=== PATIENT | female | born 1990 | race Caucasian/White ===

== ENCOUNTER 2019-03-19 19:49 | Emergency (ER) | payer OTHER ==
[~2019-03-19] VITALS: Ht 165.1 cm; Wt 74.4 kg
[~2019-03-19 19:49] MED LIST: Albuterol inhaler; Ambien; B/P med; Celexa; LEVO500T69 PO; ONDAN4ODT PO; PREN-52
--- OUTSIDE RECORDS SUMMARY | 2019-03-19 19:54 | XMS REPORT | Continuity of Care Document ---
Demographics x Preferred Language Unknown Marital Status Unknown Moravian Affiliation Unknown Race Unknown Ethnic Group Unknown Author Organization Unknown Address Unknown Phone Unavailable Allergies There is no data. Medications There is no data. Problems There is no data. Procedures There is no data. Results There is no data. Encounters ACCT No. Visit Date/Time Discharge Status Pt. Type Provider Facility Loc./Unit Complaint [id number] 12/21/2018 10:45:00 12/21/2018 23:59:59 CLS Outpatient [facility]
--- NOTE | 2019-03-19 20:35 | NUR ---
Pt brought to ED 2 for triage when room available. Pt is in custody of [facility] officer. Pt reports chest pain on and off x 3 days. Pt has had a cough x 2 days. See triage hx.
--- NOTE | 2019-03-19 21:04 | ED Chest Pain ---
General Chief Complaint: Chest Pain Stated Complaint: CHEST PAIN, HEAD ACHE, HIGH BP Source: patient, RN notes reviewed Exam Limitations: no limitations History of Present Illness Date Seen by Provider: Mar 19, 2019 Time Seen by Provider: 21:04 Allergies and Home Medications Allergies Coded Allergies: Penicillins (Unverified Allergy, Mild, 05/21/09) Promethazine (Unverified Allergy, Mild, 05/21/09) Past Bswllzq-Zvezhz-Moexxg Hx Patient Social History Recent Foreign Travel: No Contact w/Someone Who Travel: No Physical Exam Vital Signs Vital Signs - First Documented Capillary Refill : Height, Weight, BMI Height: 5'4" Weight: 135lbs. oz. 61.180465fw; BMI Method:Stated Progress/Results/Core Measures Results/Orders Lab Results Laboratory Tests Test 03/19/19 21:10 03/19/19 21:15 Range/Units White Blood Count 8.2 4.3-11.0 10^3/uL Red Blood Count 4.54 4.35-5.85 10^6/uL Hemoglobin 13.8 11.5-16.0 G/DL Hematocrit 41 35-52 % Mean Corpuscular Volume 90 80-99 FL Mean Corpuscular Hemoglobin 30 25-34 PG Mean Corpuscular Hemoglobin Concent 34 32-36 G/DL Red Cell Distribution Width 12.9 10.0-14.5 % Platelet Count 428 H 130-400 10^3/uL Mean Platelet Volume 9.0 7.4-10.4 FL Neutrophils (%) (Auto) 52 42-75 % Lymphocytes (%) (Auto) 38 12-44 % Monocytes (%) (Auto) 7 0-12 % Eosinophils (%) (Auto) 2 0-10 % Basophils (%) (Auto) 0 0-10 % Neutrophils # (Auto) 4.3 1.8-7.8 X 10^3 Lymphocytes # (Auto) 3.1 1.0-4.0 X 10^3 Monocytes # (Auto) 0.6 0.0-1.0 X 10^3 Eosinophils # (Auto) 0.2 0.0-0.3 10^3/uL Basophils # (Auto) 0.0 0.0-0.1 10^3/uL D-Dimer 0.24 0.00-0.49 UG/ML Sodium Level 140 135-145 MMOL/L Potassium Level 4.3 3.6-5.0 MMOL/L Chloride Level 101 98-107 MMOL/L Carbon Dioxide Level 24 21-32 MMOL/L Anion Gap 15 H 5-14 MMOL/L Blood Urea Nitrogen 13 7-18 MG/DL Creatinine 0.64 0.60-1.30 MG/DL Estimat Glomerular Filtration Rate > 60 BUN/Creatinine Ratio 20 Glucose Level 140 H 70-105 MG/DL Calcium Level 9.9 8.5-10.1 MG/DL Corrected Calcium 8.5-10.1 MG/DL Magnesium Level 2.1 1.8-2.4 MG/DL Total Bilirubin 0.2 0.1-1.0 MG/DL Aspartate Amino Transf (AST/SGOT) 16 5-34 U/L Alanine Aminotransferase (ALT/SGPT) 22 0-55 U/L Alkaline Phosphatase 83 40-136 U/L Troponin I < 0.30 <0.30 NG/ML Pro-B-Type Natriuretic Peptide < 5.0 <75.0 PG/ML Total Protein 8.0 6.4-8.2 GM/DL Albumin 4.8 H 3.2-4.5 GM/DL Lipase 21 8-78 U/L Urine Color YELLOW Urine Clarity CLEAR Urine pH 8.0 5-9 Urine Specific Randolph 1.010 L 1.016-1.022 Urine Protein NEGATIVE NEGATIVE Urine Glucose (UA) NEGATIVE NEGATIVE Urine Ketones NEGATIVE NEGATIVE Urine Nitrite NEGATIVE NEGATIVE Urine Bilirubin NEGATIVE NEGATIVE Urine Urobilinogen 0.2 NORMAL MG/DL Urine Leukocyte Esterase TRACE NEGATIVE Urine RBC (Auto) NEGATIVE NEGATIVE Urine RBC NONE /HPF Urine WBC 2-5 /HPF Urine Squamous Epithelial Cells >50 H /HPF Urine Crystals NONE /LPF Urine Bacteria FEW H /HPF Urine Casts NONE /LPF Urine Mucus NEGATIVE /LPF Urine Culture Indicated NO Urine Test NEGATIVE NEGATIVE My Orders Orders - SHANNON DALTON DO Ed Iv/Invasive Line Start (03/19/19 21:04) Ekg Tracing (03/19/19 21:04) Cbc With Automated Diff (03/19/19 21:04) Comprehensive Metabolic Panel (03/19/19 21:04) Fibrin Degradation Products (03/19/19 21:04) Drug Screen Stat (Urine) (03/19/19 21:04) Lipase (03/19/19 21:04) Magnesium (03/19/19 21:04) Troponin I (03/19/19 21:04) Ua Culture If Indicated (03/19/19 21:04) Probnp Fs (03/19/19 21:04) Chest Pa/Lat (2 View) (03/19/19 21:04) Hcg,Qualitative Urine (03/19/19 21:42) Dexamethasone Injection (Decadron Inject (03/19/19 22:15) Vital Signs/I&O 03/19/19 03/19/19 20:35 20:35 Temp 99.1 Pulse 93 Resp 18 B/P (MAP) 130/89 (103) Pulse Ox 96 O2 Delivery Room Air Room Air Departure Impression Primary Impression: Costochondritis, acute Disposition: 21 DIS/XFER COURT/LAW [employer]ORCE Condition: Stable Departure-Patient Inst. Decision time for Depature: 22:15 Referrals: JESSICA OTERO MD (PCP/Family) Primary Care Physician Patient Instructions: Chest Pain That Is Not Caused by the Heart (DC), Costochondritis (DC) Add. Discharge Instructions: RECOMMEND 600 mg OF IBUPROFEN EVERY 6 HOURS NEEDED FOR PAIN. All discharge instructions reviewed with patient and/or family. Voiced understanding. SHANNON DALTON DO Mar 19, 2019 21:04
[2019-03-19 21:24] LABS: WHITE BLOOD COUNT 8.2 10^3/uL (4.3-11.0)
[2019-03-19 21:25] LABS: BASOPHILS % (AUTO) 0 % (0-10); EOSINOPHILS # (AUTO) 0.2 10^3/uL (0.0-0.3); EOSINOPHILS % (AUTO) 2 % (0-10); HEMATOCRIT 41 % (35-52); HEMOGLOBIN 13.8 G/DL (11.5-16.0); LYMPHOCYTES # (AUTO) 3.1 X 10^3 (1.0-4.0); LYMPHOCYTES % (AUTO) 38 % (12-44); MEAN CORPUSCULAR HEMOGLOBIN 30 PG (25-34); MEAN CORPUSCULAR HGB CONC 34 G/DL (32-36); MEAN CORPUSCULAR VOLUME 90 FL (80-99); MONOCYTES # (AUTO) 0.6 X 10^3 (0.0-1.0); MONOCYTES % (AUTO) 7 % (0-12); NEUTROPHILS # (AUTO) 4.3 X 10^3 (1.8-7.8); NEUTROPHILS % (AUTO) 52 % (42-75); PLATELET COUNT 428 10^3/uL (130-400); RED CELL DISTRIBUTION WIDTH 12.9 % (10.0-14.5)
--- NOTE | 2019-03-19 21:28 | Diagnostic Imaging Report ---
EXAMINATION: CHEST (PA AND LATERAL) CLINICAL INDICATION: 28-year-old female, chest pain. COMPARISON: None. FINDINGS: Heart size and mediastinal contours are unremarkable. There is no identified pneumothorax. There is no pleural effusion. There is no identified focal airspace consolidation. IMPRESSION: No identified acute cardiopulmonary abnormality. Dictated by: Dictated on workstation # [id number]
[2019-03-19 21:29] LABS: BILIRUBIN,URINE NEGATIVE (NEGATIVE); CLARITY,URINE CLEAR; COLOR,URINE YELLOW; GLUCOSE, URINE (UA) NEGATIVE (NEGATIVE); KETONES,URINE NEGATIVE (NEGATIVE); NITRITE,URINE NEGATIVE (NEGATIVE); PROTEIN,URINE NEGATIVE (NEGATIVE)
[2019-03-19 21:30] LABS: BACTERIA,URINE FEW /HPF; LEUKOCYTE ESTERASE ,URINE TRACE (NEGATIVE); SQUAMOUS EPITHELIAL CELL,UR >50 /HPF; UROBILINOGEN,URINE 0.2 MG/DL (NORMAL)
[2019-03-19] MEDS ORDERED: AMIT25TA9 (21:49)
[2019-03-19] MEDS ORDERED: METO-333 (21:49)
[2019-03-19] MEDS ORDERED: QUET300T44 (21:49)
[2019-03-19 21:58] LABS: ALANINE AMINOTRANSFERASE 22 U/L (0-55); ALKALINE PHOSPHATASE 83 U/L (40-136); BILIRUBIN,TOTAL 0.2 MG/DL (0.1-1.0); BUN/CREATININE RATIO 20; CALCIUM 9.9 MG/DL (8.5-10.1); CARBON DIOXIDE 24 MMOL/L (21-32); CHLORIDE 101 MMOL/L (98-107); CREATININE SERUM 0.64 MG/DL (0.60-1.30); GFR ESTIMATED > 60; GLUCOSE 140 MG/DL (70-105); MAGNESIUM 2.1 MG/DL (1.8-2.4); POTASSIUM 4.3 MMOL/L (3.6-5.0); SODIUM 140 MMOL/L (135-145)
[2019-03-19 21:59] LABS: ALBUMIN 4.8 GM/DL (3.2-4.5); LIPASE 21 U/L (8-78)
[2019-03-19] MEDS ORDERED: DEXAMETHASONE 10 MG/ML (DECADRON) 1 ML VIAL IV ONE (22:15)
[2019-03-19 22:29] VITALS: BP 129/82
--- NOTE | 2019-03-19 22:29 | NUR ---
[facility]
[2019-03-20 01:12] LABS: AMPHETAMINE SCREEN, URINE NEGATIVE (NEGATIVE); BARBITURATE SCREEN URINE NEGATIVE (NEGATIVE); BENZODIAZEPINES SCREEN URINE NEGATIVE (NEGATIVE); CANNABINOID SCREEN, URINE NEGATIVE (NEGATIVE); COCAINE SCREEN URINE NEGATIVE (NEGATIVE); METHADONE STAT NEGATIVE (NEGATIVE); METHAMPHETAMINE SCREEN URINE S NEGATIVE (NEGATIVE); OPIATE SCREEN URINE NEGATIVE (NEGATIVE); OXYCODONE STAT NEGATIVE (NEGATIVE); PROPOXYPHENE STAT NEGATIVE (NEGATIVE); TRICYCLIC ANTIDEPRESSANTS SCRE POSITIVE (NEGATIVE)
== END 2019-03-19 22:29 ==
LOC: EDUNIT# 19:49 → ER FS 19:50
DX: M94.0 Chondrocostal junction syndrome [Tietze] (principal); Z88.0 Allergy status to penicillin; Z88.8 Allergy status to other drugs, medicaments and biological substances
CPT/HCPCS: 36415; 71046; 80053; 80306; 81000; 83690; 83735; 83880; 84484; 84703; 85025; 85379; 93005

== ENCOUNTER 2019-11-29 20:46 | Emergency (ER) | payer SELFPAY ==
[~2019-11-29] VITALS: Ht 165.1 cm; Wt 63.8 kg
[~2019-11-29 20:46] MED LIST changes: +AMIT25TA9; +METO-333; +QUET300T44
--- OUTSIDE RECORDS SUMMARY | 2019-11-29 20:52 | XMS REPORT ---
Author Author Adilene Russo [facility] Address [address] [place] [phone] Care Team Providers Care Freelance Graphic Designer Name Role Phone Samantha Russo Unavailable PROBLEMS Type Condition ICD9-CM Code [id number] Code Onset Dates Condition S tatus SNOMED Code Problem [place] (generalized anxiety disorder) F41.1 Active 29838348 Problem Essential (primary) hypertension I10 Active 02668511 Problem Methamphetamine abuse F15.10 Active 252928358 Problem Migraine with aura and without status migrainosu s, not intractable G43.109 Active 8747488 Problem Cigarette nicotine dependence without complication F17.210 Active 07628461 ALLERGIES Substance Reaction Event Type Date Status Penicillin G Sodium Unknown Drug Allergy Mar, Active Oxycodone HCl Unknown Drug Allergy Mar, Active Lisinopril Unknown Drug Allergy Mar, Active ENCOUNTERS Encounter Location Date [facility] [address] [place] [phone] Mar, Encounter for general adult medical examination without abnormal findings Z00.00 ; Methamphetamine abuse F15.10 ; [place] (generalized anxiety disorder) F41.1 ; Migraine with aura and without status migrainosus, not intractable G43.109 ; Essential (primary) hypertension I10 ; Encounter for test, result unknown Z32.00 ; Cigarette nicotine dependence without complication F17.210 and Tobacco abuse counseling Z71.6 IMMUNIZATIONS No Known Immunizations SOCIAL HISTORY Never Assessed [facility] Activity Details Follow Up 1 Year,prn Reason:annual phy sical Pending Test HCG, TOTAL, QN Pending Test HEPATITIS C AB W/REFL TO HCV RNA, QN, PCR Pending Test COMPREHENSIVE METABOLIC PANE L Pending Test CBC (INCLUDES DIFF/PLT) Pending Test HIV 1/2 ANTIGEN/ANTIBODY,FOU RTH GENERATION W/RFL VITAL SIGNS Temperature 98.4 degrees Fahrenheit 2019-04-11 Heart Rate 99 /min 2019-04-11 Respiratory Rate 18 /min 2019-04-11 Oximetry 100 % 2019-04-11 Weight 185 lbs 2019-04-11 Height 65 in 2019-04-11 BMI 30.78 kg/m2 2019-04-11 Blood pressure systolic 134 mm Hg 2019-04-11 Blood pressure diastolic 78 mm Hg 2019-04-11 MEDICATIONS Medication Instructions Dosage Frequency Start Date End Date Duration S tatus BusPIRone HCl 10 MG Orally Twice a day 1 tablet 12h Mar, 90 days Active Metoprolol Tartrate 25 MG Orally Twice a day 1 tablet with food h Mar, 90 days Active Seroquel 300 MG Orally Once a day 1 tablet at bedtime 24h Active Amitriptyline HCl 25 MG Orally Once a day 1 tablet at bedtime 24h Active RESULTS Name Result Date Reference Range Test Urine (IH) 2019-04-11 Test, Urine neg PROCEDURES Procedure Date Ordered Result Body Site URINE TEST Apr 11, 2019 COMPLETE CBC W/AUTO DIFF WBC Apr 11, 2019 BEHAV CHNG SMOKING 3-10 MIN Apr 11, 2019 INSTRUCTIONS MEDICATIONS ADMINISTERED No Known Medications MEDICAL (GENERAL) HISTORY Type Description Date Medical History hypertension Medical History migraine headaches Medical History bipolar disorder Medical History depression Medical History border line diabetic Medical History unknown kidney disorder Surgical History section x 3 Surgical History Right ankle fracture Surgical History cholecystectomy
--- OUTSIDE RECORDS SUMMARY | 2019-11-29 20:52 | XMS REPORT | Continuity of Care Document ---
Demographics Preferred Language Unknown Marital Status Unknown Confucianism Affiliation Unknown Race Unknown Ethnic Group Unknown Author Organization Unknown Address Unknown Phone Unavailable Allergies Active Description Code Type Severity Reaction Onset Reported/Identified Relationship to Patient Clinical Status Yes Penicillins [id number] Drug Aller gy Mild N/A 05/21/2009 Yes promethazine [id number] Drug Allergy Mild N/A 05/21/2009 Medications There is no data. Problems Date Dx Coded Attending Type Code Diagnosis Diagnosed By 03/24/2019 SHANNON DALTON DO, Ot M94.0 CHONDROCOSTAL JUNCTION SYNDROME [TIETZE] 03/24/2019 SHANNON DALTON DO, Ot R07.9 CHEST PAIN, UNSPECIFIED 03/24/2019 SHANNON DALTON DO, Ot Z88.0 ALLERGY STATUS TO PENICILLIN 03/24/2019 SHANNON DALTON DO Ot Z88.8 ALLERGY STATUS TO OTH DRUG/MEDS/BIOL SUB 03/31/2019 SHANNON DALTON DO, Ot M94.0 CHONDROCOSTAL JUNCTION SYNDROME [TIETZE] 03/31/2019 SHANNON DALTON DO, Ot R07.9 CHEST PAIN, UNSPECIFIED 03/31/2019 SHANNON DALTON DO, Ot Z88.0 ALLERGY STATUS TO PENICILLIN 03/31/2019 SHANNON DALTON DO, Ot Z88.8 ALLERGY STATUS TO OTH DRUG/MEDS/BIOL SUB Procedures There is no data. Results Test Result Range Complete blood count (CBC) with automate d white blood cell (WBC) differential - 03/19/19 21:10 Blood leukocytes automated count (number/volume) 8.2 10*3/uL 4.3-11.0 Blood erythrocytes automated count (number/volume) 4.54 10*6/uL 4.35-5.85 Venous blood hemoglobin measurement (mass/volume) 13.8 g/dL 11.5-16.0 Blood hematocrit (volume fraction) 41 % 35-52 Automated erythrocyte mean corpuscular volume 90 [ foz_us] 80-99 Automated erythrocyte mean corpuscular h emoglobin (mass per erythrocyte) 30 pg 25-34 Automated erythrocyte mean corpuscular h emoglobin concentration measurement (mass/volume) 34 g/dL 32-36 Automated erythrocyte distribution width ratio 12. 9 % 10.0- 14.5 Automated blood platelet count (count/volume) 428 10*3/uL 130-400 Automated blood platelet mean volume measurement 9.0 [foz_us] 7.4-10.4 Automated blood neutrophils/100 leukocytes 52 % 42-75 Automated blood lymphocytes/100 leukocytes 38 % 12-44 Blood monocytes/100 leukocytes 7 % 0-12 Automated blood eosinophils/100 leukocytes 2 % 0-10 Automated blood basophils/100 leukocytes 0 % 0-10 Blood neutrophils automated count (number/volume) 4.3 10*3 1.8-7.8 Blood lymphocytes automated count (number/volume) 3.1 10*3 1.0-4.0 Blood monocytes automated count (number/volume) 0. 6 10*3 0.0-1.0 Automated eosinophil count 0.2 10*3/uL 0 .0-0.3 Automated blood basophil count (count/volume) 0.0 10*3/uL 0.0-0.1 Fibrin D-dimer FEU measurement in platel et poor plasma (mass/volume) - 03/19/19 21:10 Fibrin D-dimer FEU measurement in platelet poor plasma (mass/volume) 0.24 ug/mL 0.00-0.49 Comprehensive metabolic panel - 03/19/19 21:10 Serum or plasma sodium measurement (moles/volume) 140 mmol/L 135-145 Serum or plasma potassium measurement (moles/volume) 4.3 mmol/L 3.6-5.0 Serum or plasma chloride measurement (moles/volume) 101 mmol/L 98-107 Carbon dioxide 24 mmol/L 21-32 Serum or plasma anion gap determination (moles/volume) 15 mmol/L 5-14 Serum or plasma urea nitrogen measurement (mass/volume ) 13 mg/dL 7-18 Serum or plasma creatinine measurement (mass/volume) 0.64 mg/dL 0.60-1.30 Serum or plasma urea nitrogen/creatinine mass ratio 20 NRG Serum or plasma creatinine measurement w ith calculation of estimated glomerular filtration rate > NRG Serum or plasma glucose measurement (mass/volume) 140 mg/dL 70-105 Serum or plasma calcium measurement (mass/volume) 9.9 mg/dL 8.5-10.1 Serum or plasma total bilirubin measurement (mass/volu me) 0.2 mg/dL 0.1-1.0 Serum or plasma alkaline phosphatase kermit surement (enzymatic activity/volume) 83 U/L 40-136 Serum or plasma aspartate aminotransfera se measurement (enzymatic activity/volume) 16 U/L 5-34 Serum or plasma alanine aminotransferase measurement (enzymatic activity/volume) 22 U/L 0-55 Serum or plasma protein measurement (mass/volume) 8.0 g/dL 6.4-8.2 Serum or plasma albumin measurement (mass/volume) 4.8 g/dL 3.2-4.5 Magnesium - 03/19/19 21:10 Magnesium 2.1 mg/dL 1.8-2.4 Serum or plasma troponin i.cardiac measu rement (mass/volume) - 03/19/19 21:10 Serum or plasma troponin i.cardiac measurement (mass/v olume) < ng/mL <0.30 PROBNP FS - 03/19/19 21:10 PROBNP FS < 5.0 <75.0 Lipase - 03/19/19 21:10 Lipase 21 U/L 8-78 Complete urinalysis with reflex to cultu re - 03/19/19 21:15 Urine color determination YELLOW NRG Urine clarity determination CLEAR NR G Urine pH measurement by test strip 8.0 5-9 Specific gravity of urine by test strip 1.010 1.016-1.022 Urine protein assay by test strip, semi-quantitative NEGATIVE NEGATIVE Urine glucose detection by automated test strip NE GATIVE NEGATIVE Erythrocytes detection in urine sediment by light micr oscopy NEGATIVE NEGATIVE Urine ketones detection by automated test strip NE GATIVE NEGATIVE Urine nitrite detection by test strip NEGATIVE NEGATIVE Urine total bilirubin detection by test strip NEGA TIVE NEGATIVE Urine urobilinogen measurement by automated test strip (mass/volume) 0.2 mg/dL NORMAL Urine leukocyte esterase detection by dipstick TRA CE NEGATIVE Automated urine sediment erythrocyte cou nt by microscopy (number/high power field) NONE NRG Automated urine sediment leukocyte count by microscopy (number/high power field) [HPF] NRG Bacteria detection in urine sediment by light microsco py FEW NRG Squamous epithelial cells detection in u rine sediment by light microscopy >50 NRG Crystals detection in urine sediment by light microsco py NONE NRG Casts detection in urine sediment by light microscopy NONE NRG Mucus detection in urine sediment by light microscopy NEGATIVE NRG Complete urinalysis with reflex to culture NO NRG Urine beta human chorionic gonadotropin (hCG) measurement - 03/19/19 21:15 Urine beta human chorionic gonadotropin (hCG) measurem ent NEGATIVE NEGATIVE Urine drug screening test - 03/19/19 21: 15 Urine phencyclidine detection by screening method NEGATIVE NEGATIVE Urine benzodiazepines detection by screening method NEGATIVE NEGATIVE Urine cocaine detection NEGATIVE NEGATI VE Urine amphetamines detection by screening method N EGATIVE NEGATIVE Urine methamphetamine detection by screening method NEGATIVE NEGATIVE Urine cannabinoids detection by screening method N EGATIVE NEGATIVE Urine opiates detection by screening method NEGATI VE NEGATIVE Urine barbiturates detection NEGATIVE N EGATIVE Screening urine tricyclic antidepressants detection POSITIVE NEGATIVE Urine methadone detection by screening method NEGA TIVE NEGATIVE Urine oxycodone detection NEGATIVE NEGA TIVE Urine propoxyphene detection NEGATIVE N EGATIVE HIV 1/2 ANTIGEN/ANTIBODY,FOURTH GENERATI ON W/RFL - 04/11/19 14:43 HIV AG/AB, 4TH GEN NON-REACTIVE NON-TELLY CTIVE VITAMIN B12/FOLATE, SERUM PANEL - 10:06 VITAMIN B12 360 pg/mL 200-1100 FOLATE, SERUM 18.1 ng/mL NRG TSH - 06/27/19 10:08 TSH 4.40 mIU/L NRG A1C - 07/17/19 09:48 HEMOGLOBIN A1c 5.8 % of total Hgb <5.7 CBC - 10/05/19 10:18 WHITE BLOOD CELL COUNT 6.2 Thousand/uL 3 .8-10.8 RED BLOOD CELL COUNT 4.75 Million/uL 3.8 0-5.10 HEMOGLOBIN 14.8 g/dL 11.7-15.5 HEMATOCRIT 42.2 % 35.0-45.0 MCV 88.8 fL 80.0-100.0 MCH 31.2 pg 27.0-33.0 MCHC 35.1 g/dL 32.0-36.0 RDW 13.0 % 11.0-15.0 PLATELET COUNT 398 Thousand/uL 140-400 MPV 9.6 fL 7.5-12.5 ABSOLUTE NEUTROPHILS 3317 cells/uL 1500- 7800 ABSOLUTE LYMPHOCYTES 2151 cells/uL 850-3 900 ABSOLUTE MONOCYTES 508 cells/uL 200-950 ABSOLUTE EOSINOPHILS 186 cells/uL 15-500 ABSOLUTE BASOPHILS 37 cells/uL 0-200 NEUTROPHILS 53.5 % NRG LYMPHOCYTES 34.7 % NRG MONOCYTES 8.2 % NRG EOSINOPHILS 3.0 % NRG BASOPHILS 0.6 % NRG Encounters ACCT No. Visit Date/Time Discharge Status Pt. Type Provider Facility Loc./Unit Complaint [id number] 04/11/2019 13:00:00 Document Registration [id number] 03/19/2019 19:50:00 019 22:29:00 DIS Outpatient SHANNON DALTON DO [facility] ER FS CHEST PAIN, HEAD ACHE, HIGH BP [id number] 11/19/2019 13:40:00 11/19/2019 23:59: 59 CLS Outpatient Samantha Russo [facility] [id number] 10/05/2019 10:00:00 Document Registration [id number] 07/17/2019 09:30:00 Document Registration [id number] 06/27/2019 08:30:00 Document Registration
--- OUTSIDE RECORDS SUMMARY | 2019-11-29 20:52 | XMS REPORT ---
Author Author Adilene Russo Organization [facility] Address [address] [phone] Care Team Providers Care Heater Operator Name Role Phone Samantha Russo Unavailable PROBLEMS Type Condition ICD9-CM Code [id number] Code Onset Dates Condition S tatus SNOMED Code Problem [place] (generalized anxiety disorder) F41.1 Active 93069967 Problem Essential (primary) hypertension I10 Active 22475688 Problem Methamphetamine abuse F15.10 Active 827397664 Problem Migraine with aura and without status migrainosu s, not intractable G43.109 Active 0095724 Problem Cigarette nicotine dependence without complication F17.210 Active 70211056 ALLERGIES No Information ENCOUNTERS Encounter Location Date Diagnosis [facility] [address] [place] [id number] Apr, [facility] [place] [address] [place] [id number] Mar, Encounter for general adult medical examination [...] SOCIAL HISTORY Never Assessed REASON FOR VISIT Test results PLAN OF CARE VITAL SIGNS MEDICATIONS Unknown Medications RESULTS No Results PROCEDURES No Known procedures INSTRUCTIONS MEDICATIONS ADMINISTERED No Known Medications MEDICAL (GENERAL) HISTORY Type Description Date Medical History hypertension Medical History migraine headaches Medical History bipolar disorder Medical History depression Medical History border line diabetic Medical History unknown kidney disorder Surgical History section x 3 Surgical History Right ankle fracture Surgical History cholecystectomy
--- NOTE | 2019-11-29 20:58 | ED General ---
General Chief Complaint: Respiratory Problems Stated Complaint: SOB,RELAPSE Source of Information: Patient, Old Records, RN Notes Reviewed History of Present Illness Date Seen by Provider: Nov 29, 2019 Time Seen by Provider: 20:50 Initial Comments This patient is a 29-year-old female presents to the emergency department with complaint of respiratory complaints however the patient states she has no complaints patient states she is on some medication review because she took methamphetamine at about 3 PM and wanted it was okay to take her chronic medications takes at home. Patient states that she still funny after taking the methamphetamine is usually not the way she feels. Patient states she had menstrual clean for about 11 months but then relapsed tonight. I did ask the patient she wanted further medical screening exam the patient stated no that she would just let me look in her medications to make sure that there would be no interaction with her methamphetamine. Medications. Be okay. Patient does take a beta victorino pro-air respiratory inhaler when necessary Seroquel. I did discuss length with patient about trying to stop using drugs. Patient states understanding. Patient be discharged home per her request. Patient was offered full medical screening exam declines she just wanted a medication review. Timing/Duration: 1-3 Hours Severity: Mild Associated Systoms: No Denies Symptoms, No Chest Pain, No Cough, No Diaphoresis, No Fever/Chills, No Headaches, No Loss of Appetite, No Malaise, No Nausea/Vomiting, No Rash, No Seizure, No Shortness of Air, No Syncope, No Weakness, No Other Allergies and Home Medications Allergies Coded Allergies: Penicillins (Unverified Allergy, Mild, 05/21/09) Promethazine (Unverified Allergy, Mild, 05/21/09) Patient Home Medication List Home Medication List Reviewed: Yes Review of Systems Review of Systems Constitutional: No no symptoms reported; see HPI; No chills, No diaphoresis, No dizziness, No fever, No malaise, No weakness, No weight gain, No weight loss, No other EENTM: No see HPI, No no symptoms reported, No ear discharge, No hearing loss, No ear pain, No blurred vision, No double vision, No eye pain, No tearing, No vision loss, No dental problems, No hoarseness, No mouth pain, No mouth swelling, No epistaxis, No nose congestion, No nose pain, No throat pain, No throat swelling, No other Respiratory: No no symptoms reported, No see HPI, No cough, No dyspnea on exertion, No hemoptysis, No orthopnea, No phlegm, No short of breath, No stridor, No wheezing, No other Cardiovascular: No no symptoms reported, No see HPI, No chest pain, No edema, No Hx of Intervention, No palpitations, No syncope, No vascular heart diseas, No other Gastrointestinal: No RUQ, No LUQ, No RLQ, No LLQ, No no symptoms reported, No see HPI, No abdominal pain, No constipation, No diarrhea, No dysphagia, No hematemesis, No heartburn, No jaundice, No loss of appetite, No melena, No nausea, No vomiting, No other Genitourinary: No no symptoms reported, No see HPI, No decreased output, No discharge, No dysuria, No frequency, No hematuria, No hesitancy, No incontinenc e, No nocturia, No pain, No other Musculoskeletal: No no symptoms reported, No see HPI, No back pain, No gout, No joint pain, No joint swelling, No muscle pain, No muscle stiffness, No muscle cramps, No muscle twitching, No muscle weakness, No neck pain, No other Skin: No no symptoms reported, No see HPI, No change in color, No change in hair/nails, No dryness, No hx of skin cancer, No lesions, No lumps, No pruritus, No rash, No other Psychiatric/Neurological: Denies No Symptoms Reported; See HPI, Anxiety; Denies Depressed, Denies Emotional Problems, Denies Headache, Denies Numbness, Denies Paresthesia, Denies Pre-Existing Deficit, Denies Seizure, Denies Tingling, Denies Tremors, Denies Weakness; Other (drug abuse) All Other Systems Reviewed Negative Unless Noted: Yes Past [id number]-[id number]-Lzfxtp Hx Patient Social History Drug of Choice: THC, Methamphetamines Type Used: Cigarettes 2nd Hand Smoke Exposure: Yes Recent Foreign Travel: No Contact w/Someone Who Travel: No Recent Hopitalizations: No Seasonal Allergies Seasonal Allergies: No Past Medical History Surgeries: Yes (C/S x4, R ankle, L knee) Section, Gallbladder, Orthopedic Respiratory: No Cardiac: Yes Hypertension Neurological: Yes Headaches /Migraines Genitourinary: No Gastrointestinal: No Musculoskeletal: Yes Fractures Endocrine: No HEENT: No Cancer: No Psychosocial: Yes Bipolar, Depression Integumentary: No Blood Disorders: No Physical Exam Vital Signs Capillary Refill : Height, Weight, BMI Height: 5'5.00" Weight: 164lbs. oz. [id number]; BMI Method:Stated General Appearance: No Apparent Distress, WD/WN HEENT: PERRL/EOMI, TMs Normal, Normal ENT Inspection, Pharynx Normal Neck: Full Range of Motion, Normal Inspection, Non Tender, Supple, Carotid Bruit Respiratory: Chest Non Tender, Lungs Clear, Normal Breath Sounds, No Accessory Muscle Use, No Respiratory Distress Cardiovascular: Regular Rate, Rhythm, No Edema, No Gallop, No JVD, No Murmur, Normal Peripheral Pulses Gastrointestinal: Normal Bowel Sounds, No Organomegaly, No Pulsatile Mass, Non Tender, Soft Back: Normal Inspection, No CVA Tenderness, No Vertebral Tenderness Extremity: Normal Capillary Refill, Normal Inspection, Normal Range of Motion, Non Tender, No Calf Tenderness, No Pedal Edema Neurologic/Psychiatric: Alert, Oriented x3, No Motor/Sensory Deficits, Normal Mood/Affect Skin: Normal Color, Warm/Dry Progress/Results/Core Measures Suspected Sepsis SIRS Temperature: Pulse: Respiratory Rate: Blood Pressure / Mean: Results/Orders Vital Signs/I&O Capillary Refill : Progress Note : Time: 20:56 Progress Note Try her best not to use drugs. Specimen methamphetamine. It is safe to take home medications. Follow-up with PCP in 2 days. I did offer the patient for medical screening exam patient declines with just one medication evaluation. Medications reaction with methamphetamine. Departure Impression Primary Impression: Methamphetamine use Additional Impression: Encounter for medication review Disposition: 01 HOME, SELF-CARE Condition: Stable Departure-Patient Inst. Decision time for Depature: 20:57 Referrals: JESSICA OTERO MD (PCP/Family) Primary Care Physician Add. Discharge Instructions: Try her best not to use drugs. Specimen methamphetamine. It is safe to take home medications. Follow-up with PCP in 2 days. All discharge instructions reviewed with patient and/or family. Voiced understanding. CAIT OJEDA MD Nov 29, 2019 20:58
[2019-11-29 21:00] VITALS: BP 151/94
== END 2019-11-29 21:00 | disposition home or self-care (01) ==
LOC: EDUNIT# 20:46 → ER FS 20:48
DX: F15.90 Other stimulant use, unspecified, uncomplicated (principal); I10 Essential (primary) hypertension; F31.9 Bipolar disorder, unspecified; Z88.0 Allergy status to penicillin; Z88.8 Allergy status to other drugs, medicaments and biological substances; Z77.22 Contact with and (suspected) exposure to environmental tobacco smoke (acute) (chronic)
CPT/HCPCS: 99282

== ENCOUNTER 2020-05-15 07:36 | Emergency (ER) | payer SELFPAY ==
[~2020-05-15] VITALS: Ht 165 cm; Wt 95.0 kg
[2020-05-15 07:44] VITALS: BP 123/73
--- NOTE | 2020-05-15 07:48 | ED General ---
General Chief Complaint: General Problems/Pain Stated Complaint: NECK/HEAD/SHOULDER PAIN History of Present Illness Date Seen by Provider: May 15, 2020 Time Seen by Provider: 07:47 Initial Comments 29-year-old female presents with some left-sided neck pain. She reports that she woke up with some pain in the last several neck around 5 AM this morning. She tried some icy hot helped for a little bit. She denies any injury. She has some tightness in the last sever neck this coming to her left shoulder. She does not have any chest pain, nausea vomiting fevers chills. The pain gets worse with movement or palpation. He has no numbness tingling or other acute neurologic complaints. Allergies and Home Medications Allergies Coded Allergies: Penicillins (Unverified Allergy, Mild, 05/21/09) promethazine (Unverified Allergy, Mild, 05/21/09) acetaminophen (Verified Allergy, Unknown, 05/15/20) lisinopril (Verified Allergy, Unknown, 05/15/20) oxycodone (Verified Allergy, Unknown, 05/15/20) Patient Home Medication List Home Medication List Reviewed: Yes Review of Systems Review of Systems Constitutional: No chills, No fever EENTM: see HPI Respiratory: no symptoms reported Cardiovascular: no symptoms reported Gastrointestinal: no symptoms reported Genitourinary: no symptoms reported Musculoskeletal: see HPI Skin: no symptoms reported Psychiatric/Neurological: No Symptoms Reported Hematologic/Lymphatic: No Symptoms Reported Past Wpahdae-Mjirpp-Zusnqt Hx Past Med/Social Hx: Reviewed Nursing Past Med/Soc Hx Patient Social History Alcohol Use: Denies Use Recreational Drug Use: No Drug of Choice: THC, Methamphetamines PAST USE Smoking Status: Current Everyday Smoker Type Used: Cigarettes 2nd Hand Smoke Exposure: Yes Recent Foreign Travel: No Contact w/Someone Who Travel: No Recent Hopitalizations: No Physical Abuse: No Sexual Abuse: No Mistreated: No Fear: No Seasonal Allergies Seasonal Allergies: No Past Medical History Surgeries: Yes (C/S x4, R ankle, L knee) Section, Gallbladder, Orthopedic Respiratory: No Cardiac: Yes Hypertension Neurological: Yes Headaches /Migraines Genitourinary: No Gastrointestinal: No Musculoskeletal: Yes Fractures Endocrine: No HEENT: No Cancer: No Psychosocial: Yes Bipolar, Depression Integumentary: No Blood Disorders: No Physical Exam Vital Signs Vital Signs - First Documented 05/15/20 07:44 Temp 36.1 Pulse 95 Resp 16 B/P (MAP) 123/73 (90) Pulse Ox 98 O2 Delivery Room Air Capillary Refill : Height, Weight, BMI Height: 5'5.00" Weight: 164lbs. oz. [id number]; 23.00 BMI Method:Stated General Appearance: No Apparent Distress, WD/WN HEENT: PERRL/EOMI Neck: No Lymphadenopathy (L), No Lymphadenopathy (R); Tender Lateral; No Tender Midline; Other (tight muscle on left lateral maxilla with pain with movement) Respiratory: Lungs Clear, Normal Breath Sounds, No Accessory Muscle Use Cardiovascular: Regular Rate, Rhythm, No Edema Gastrointestinal: Non Tender, Soft Extremity: Normal Capillary Refill, Normal Range of Motion Neurologic/Psychiatric: Alert, Oriented x3, No Motor/Sensory Deficits, Normal Mood/Affect, contracts officer II-XII Norm as Tested Progress/Results/Core Measures Suspected Sepsis SIRS Temperature: Pulse: Respiratory Rate: Blood Pressure / Mean: Results/Orders Vital Signs/I&O 05/15/20 07:44 Temp 36.1 Pulse 95 Resp 16 B/P (MAP) 123/73 (90) Pulse Ox 98 O2 Delivery Room Air Capillary Refill : Departure Impression Primary Impression: Torticollis, spasmodic Disposition: 01 HOME, SELF-CARE Condition: Stable Departure-Patient Inst. Referrals: JESSICA OTERO MD (PCP/Family) Primary Care Physician Patient Instructions: Torticollis, Adult, Muscle Spasms (DC) Add. Discharge Instructions: 4% topical lidocaine with menthol patch, gel or cream. Please use as directed on package All discharge instructions reviewed with patient and/or family. Voiced understanding. Scripts Naproxen (Naprosyn) 500 Mg Tablet 500 MG PO BID, #30 TAB 0 Refills Prov: SALAMANCA,PRATIK L DO 05/15/20 Cyclobenzaprine HCl (Cyclobenzaprine HCl) 10 Mg Tablet 10 MG PO Q8H PRN for SPASMS, #15 TAB 0 Refills Prov: SALAMANCA,PRATIK L DO 05/15/20 SALAMANCA,PRATIK L DO May 15, 2020 07:48
[2020-05-15] MEDS ORDERED: CYCL10TA9 PO (07:54)
[2020-05-15] MEDS ORDERED: NAPR-1071 PO (07:54)
== END 2020-05-15 07:58 | disposition home or self-care (01) ==
LOC: EDUNIT# 07:36 → ER FS 07:37
DX: G24.3 Spasmodic torticollis (principal); F17.210 Nicotine dependence, cigarettes, uncomplicated; Z88.0 Allergy status to penicillin; Z88.5 Allergy status to narcotic agent; Z88.6 Allergy status to analgesic agent; Z88.8 Allergy status to other drugs, medicaments and biological substances
CPT/HCPCS: 99281

== ENCOUNTER 2022-04-13 18:35 | Emergency (ER) | payer SELFPAY ==
[~2022-04-13 18:35] MED LIST changes: +CYCL10TA25 PO; +NAPR-1071 PO; +QUET300T19; -QUET300T44
--- NOTE | 2022-04-13 19:11 | ED Fall/Injury ---
General Chief Complaint: Trauma-Non Activation Stated Complaint: FALL,BACK PAIN Nursing Triage Note: Pt states she slipped and fell in her house onto her back. Pt complaining of mid/lower back pain Source: patient History of Present Illness Date Seen by Provider: Apr 13, 2022 Time Seen by Provider: 18:43 Initial Comments 31-year-old female presenting with complaints of severe back pain and tailbone pain after falling down some steps at her house. She was running through the house chasing the dog and had just been wearing socks. They had new nguyễn pending and so she had slid on this and fell on her butt and back. She denies hitting her head or losing consciousness. She states this happened around 1615 and she did take ibuprofen. She then took a short nap and felt like the pain was worse after she woke up so they came to the emergency department. She has no loss of bowel or bladder control. She denies pain going into her legs or arms. Occurred: this afternoon Severity: severe Injuries/Pain Location: back, pelvis Context: slipped Loss of Consciousness: no loss of consciousness Modifying Factors: Worse With Movement Associated Symptoms (Fall): No Abdominal Pain, No Chest Pain, No Confusion, No Dizziness, No Headache, No Lightheadedness; Muscle Spasms; No Nausea/Vomiting, No Neck Pain, No Ringing in Ears, No Seizures, No Shortness of Air, No Slurred Speech; Trouble Walking (Due to pain in her back); No Vision Changes Allergies and Home Medications Allergies Coded Allergies: Penicillins (Unverified Allergy, Mild, 05/21/09) promethazine (Unverified Allergy, Mild, 05/21/09) acetaminophen (Verified Allergy, Unknown, 05/15/20) lisinopril (Verified Allergy, Unknown, 05/15/20) oxycodone (Verified Allergy, Unknown, 05/15/20) Patient Home Medication List Home Medication List Reviewed: Yes Amitriptyline HCl (Amitriptyline HCl) 25 Mg Tablet, (Reported) Entered as Reported by: CYNTHIA WEEKS on 03/19/19 2753 Cyclobenzaprine HCl (Cyclobenzaprine HCl) 10 Mg Tablet, 10 MG PO Q8H PRN for SPASMS Prescribed by: PRATIK SALAMANCA on 05/15/20 2872 Cyclobenzaprine HCl (Cyclobenzaprine HCl) 10 Mg Tablet, 10 MG PO TID PRN for MUSCLE SPASMS Prescribed by: RAY HARGROVE on 04/13/222050 Hydrocodone/Acetaminophen (Hydrocodone-Acetamin 5-325 mg) 5 Mg-325 Mg Tablet, 1 TAB PO Q4H PRN for PAIN-SEVERE (8-10) Prescribed by: RAY HARGROVE on 04/13/222051 Ibuprofen (Ibuprofen) 800 Mg Tablet, 800 MG PO Q8H PRN for PAIN Prescribed by: RAY HARGROVE on 04/13/222050 Metoprolol Tartrate (Metoprolol Tartrate) 25 Mg Tablet, (Reported) Entered as Reported by: CYNTHIA WEEKS on 03/19/192148 Naproxen (Naprosyn) 500 Mg Tablet, 500 MG PO BID Prescribed by: PRATIK SALAMANCA on 05/15/20 0754 Quetiapine Fumarate (Quetiapine Fumarate) 300 Mg Tablet, (Reported) Entered as Reported by: CYNTHIA WEEKS on 03/19/192148 Review of Systems Review of Systems Constitutional: No chills, No dizziness, No fever Eyes: Denies Blurred Vision, Denies Vision Changes Ears, Nose, Mouth, Throat: denies ear pain, denies ear discharge, denies nose pain, denies nose discharge, denies epistaxis Respiratory: No cough, No short of breath Cardiovascular: no symptoms reported Gastrointestinal: No abdominal pain, No nausea, No vomiting Genitourinary: no symptoms reported Musculoskeletal: see HPI Skin: No change in color (No bruising is noted to her back) Psychiatric/Neurological: Anxiety; Denies Numbness, Denies Paresthesia, Denies Tingling, Denies Weakness Past Icpciwm-Payoop-Nzfskd Hx Patient Social History Tobacco Use?: Yes Tobacco type used: Cigarettes Smoking Status: Current Everyday Smoker Substance use?: Yes Substance type: Methamphetamine Alcohol Use?: No Seasonal Allergies Seasonal Allergies: No Past Medical History Surgery/Hospitalization HX: Methamphetamine abuse, cholecystectomy, section, hypertension, migraines Surgeries: Yes (C/S x4, R ankle, L knee) Section, Gallbladder, Orthopedic Respiratory: No Cardiac: Yes Hypertension Neurological: Yes Headaches /Migraines Genitourinary: No Gastrointestinal: No Musculoskeletal: Yes Fractures Endocrine: No HEENT: No Cancer: No Psychosocial: Yes Bipolar, Depression Integumentary: No Blood Disorders: No Physical Exam Vital Signs Vital Signs - First Documented 04/13/22 18:45 Temp 36.0 Pulse 120 Resp 20 B/P (MAP) 154/82 (106) Pulse Ox 99 O2 Delivery Room Air Capillary Refill : Less Than 3 Seconds Height, Weight, BMI Height: 5'5.00" Weight: 164lbs. oz. 74.068952wb; 34.00 BMI Method:Stated General Appearance: moderate distress, other (Patient is having trouble sitting still and is moving her legs constantly.) HEENT: PERRL/EOMI Neck: non-tender, full range of motion, supple, normal inspection Cardiovascular: normal peripheral pulses, regular rate, rhythm Respiratory: chest non-tender, lungs clear, normal breath sounds, no respiratory distress, no accessory muscle use Gastrointestinal: normal bowel sounds, non tender, soft, no pulsatile mass Rectal: deferred Back: no CVA tenderness, muscle spasm, vertebral tenderness (Lumbar spine tenderness to palpation, tenderness over the sacrum and coccyx. There is no step-off or deformity and no crepitus noted) Extremities: normal range of motion, non-tender, normal capillary refill Neurologic/Psychiatric: area loss prevention manager II-XII nml as tested, no motor/sensory deficits, alert, oriented x 3, other (Patient is anxious and complaining of pain in her back. She is constantly moving her legs) Skin: warm/dry, other (Multiple sores on her arms and legs with some of them looking like track serrano.) [place] Coma Score Best Eye Response: (4) Open Spontaneously Best Verbal Response: (5) Oriented Best Motor Response: (6) Obeys Commands [place] Total: 15 Progress/Results/Core Measures Results/Orders Lab Results Laboratory Tests Test 04/13/22 18:48 Range/Units Urine Color YELLOW Urine Clarity SL CLOUDY Urine pH 6.0 5-9 Urine Specific [place] >=1.030 1.016-1.022 Urine Protein 1+ H NEGATIVE Urine Glucose (UA) 1+ H NEGATIVE Urine Ketones NEGATIVE NEGATIVE Urine Nitrite NEGATIVE NEGATIVE Urine Bilirubin NEGATIVE NEGATIVE Urine Urobilinogen 1.0 < = 1.0 MG/DL Urine Leukocyte Esterase NEGATIVE NEGATIVE Urine RBC (Auto) NEGATIVE NEGATIVE Urine RBC NONE /HPF Urine WBC 0-2 /HPF Urine Squamous Epithelial Cells 0-2 /HPF Urine Crystals PRESENT H /LPF Urine Amorphous Sediment FEW AVA PHOSPHATE H /LPF Urine Bacteria NEGATIVE /HPF Urine Casts PRESENT /LPF Urine Hyaline Casts 2-5 H /LPF Urine Mucus SMALL H /LPF Urine Culture Indicated NO Urine Test NEGATIVE NEGATIVE Urine Opiates Screen NEGATIVE NEGATIVE Urine Oxycodone Screen NEGATIVE NEGATIVE Urine Methadone Screen NEGATIVE NEGATIVE Urine Propoxyphene Screen NEGATIVE NEGATIVE Urine Barbiturates Screen NEGATIVE NEGATIVE Ur Tricyclic Antidepressants Screen POSITIVE H NEGATIVE Urine Phencyclidine Screen NEGATIVE NEGATIVE Urine Amphetamines Screen POSITIVE H NEGATIVE Urine Methamphetamines Screen POSITIVE H NEGATIVE Urine Benzodiazepines Screen NEGATIVE NEGATIVE Urine Cocaine Screen NEGATIVE NEGATIVE Urine Cannabinoids Screen NEGATIVE NEGATIVE My Orders Orders - RAY HARGROVE MD Ua Culture If Indicated (04/13/22 19:13) Drug Screen Stat (Urine) (04/13/22 19:13) Hcg,Qualitative Urine (04/13/22 19:13) Morphine Injection (Morphine Injection (04/13/22 19:19) Orphenadrine Inj (Ed Only) (Norflex Inje (04/13/22 19:19) Ct Lumbar Spine Wo (04/13/22 19:20) Ct Pelvis Wo (04/13/22 19:20) Rx-Hydrocodone/Apap 5-325 Mg (Rx-Vicodin (04/13/22 21:00) Medications Given in ED Current Medications Medications Dose Ordered Sig/Fly Route Start Time Stop Time Status Last Admin Dose Admin Acetaminophen/ Hydrocodone Bitart 1 ea Q4H PRN PO 04/13/22 21:00 04/13/22 20:56 DC 04/13/22 20:52 1 EA Vital Signs/I&O 04/13/22 04/13/22 18:45 20:54 Temp 36.0 Pulse 120 106 Resp 20 20 B/P (MAP) 154/82 (106) 138/81 Pulse Ox 99 96 O2 Delivery Room Air Room Air Blood Pressure Mean: 106 Progress Progress Note #1: Progress Note With patient complaining of severe pain to her lumbar spine and tailbone will obtain CT scan to look for signs of compression fracture or displacement. Ordered Norflex 60 mg IM for muscle spasms and morphine 4 mg IM for severe pain. Urinalysis with drug screen and urine were also ordered. Progress Note #2: Progress Note Urinalysis shows dehydration with elevated specific gravity greater than 1.035. She does have methamphetamines, amphetamines, tricyclic's showing up in her urine drug screen. On my review of the CT scan of the lumbar spine and pelvis does look like she has anterior compression fracture of T11. Awaiting official radiology report Progress Note #3: Time: 20:[address] scan of the pelvis shows no acute process. CT scan of the lumbar spine shows T11 anterior compression fracture. There is no posterior element and nothing protruding into the spinal canal. Will memorial counselor patient on findings and results. Prescribed pain medicine and counseled to follow-up with clinic for continued pain control. She might benefit from kyphoplasty or pain management. Counseled on follow-up and return precautions. Given strict return precautions of concern for cauda equina and spinal cord symptoms. Diagnostic Imaging Diagonstic Imaging: CT Plain Films/CT/US/NM/MRI: other (Lumbar spine) Comments NAME: JOSELYN VERDUGO [facility] REC#: [id number] PT STATUS: REG ER : 1990 PHYSICIAN: RAY HARGROVE MD ADMIT DATE: 04/13/22/ER FS Draft Date of Exam:04/13/22 CT LUMBAR SPINE WO Procedure: CT lumbar spine without contrast. Technique: Multiple contiguous axial images were obtained through the lumbar spine without the use of intravenous contrast. Sagittal and coronal reformations were then performed. Auto Exposure Controls were utilized during the CT exam to meet ALARA standards for radiation dose reduction. Date: April 13, 2022. Indication: 31-year-old female, fall. Low back and coccygeal pain. Comparison: None. Findings: The alignment of the lumbar spine is unremarkable. There is an acute oblique fracture involving the anterior and superior aspect of the T11 vertebral body. There is a superior endplate concavity at this level. There is no fracture involvement of the posterior elements. There is no retropulsed fracture fragment. There are bilateral L5 pars interarticularis defects without anterolisthesis of L5 on S1. There is no additional identified acute fracture in the included [id number]. The lumbar disc heights are well preserved. CT is limited for assessment of disc pathology as well as additional non-bony causes of pathology in the spinal canal. Impression: 1. Acute fracture involving the anterior and superior aspect of the T11 vertebral body with superior endplate concavity. No fracture involvement of the posterior elements. Dictated on workstation # [id number] Dict: 04/13/221941 Trans: 04/13/222020 [facility] [id number] Interpreted by: DELONTE HOGAN MD Electronically signed by: Reviewed: Reviewed by Tx Diagonstic Imaging: CT Plain Films/CT/US/NM/MRI: pelvis Comments NAME: JOSELYN VERDUGO [facility] REC#: [id number] PT STATUS: REG ER : 1990 PHYSICIAN: RAY HARGROVE MD ADMIT DATE: 04/13/22/ER FS Draft Date of Exam:04/13/22 CT PELVIS WO Procedure: CT pelvis without contrast. Technique: Multiple contiguous axial images were obtained through the pelvis without the use of intravenous contrast. Sagittal and coronal reformations were performed. Auto Exposure Controls were utilized during the CT exam to meet ALARA standards for radiation dose reduction. Date: April 13, 2022. Indication: 31-year-old female, fall. Sacrum and coccygeal pain. Comparison: None. Findings: There are bilateral L5 pars interarticularis defects. The pubic symphysis and sacroiliac joints are normally aligned. The hips are normally aligned. There is no joint space loss of either hip. There is no identified acute fracture in the included [id number]. There is no identified sizable fluid collection or hematoma. There is no free fluid in the pelvis. Impression: 1. No identified acute abnormality at the level of the pelvis. Dictated on workstation # [id number] Dict: 04/13/221944 Trans: 04/13/222031 [facility] [id number] Interpreted by: DELONTE HOGAN MD Electronically signed by: Reviewed: Reviewed by Tx Departure Impression Primary Impression: Traumatic compression fracture of T11 thoracic vertebra Qualified Codes: S22.080A - Wedge compression fracture of T11-T12 vertebra, initial encounter for closed fracture Additional Impression: Fall on stairs Qualified Codes: W10.9XXA - Fall (on) (from) unspecified stairs and steps, initial encounter Disposition: 01 HOME, SELF-CARE Condition: Stable Departure-Patient Inst. Decision time for Depature: 20:48 Referrals: SHANE FUNES APRN (PCP/Family) Primary Care Physician Patient Instructions: Vertebral Compression Fracture ED Add. Discharge Instructions: Be seen immediately if you have loss of control of your bowels or bladder. Follow up with clinic for continued pain control of the compression fracture. The clinic may also refer you to spine doctor or pain management for additional treatment. Avoid using methamphetamines or drugs other than what is prescribed for you. All discharge instructions reviewed with patient and/or family. Voiced understanding. Scripts Ibuprofen (Ibuprofen) 800 Mg Tablet 800 MG PO Q8H PRN for PAIN for 10 Days, #30 TAB 0 Refills Prov: RAY HARGROVE MD 04/13/22 Cyclobenzaprine HCl (Cyclobenzaprine HCl) 10 Mg Tablet 10 MG PO TID PRN for MUSCLE SPASMS for 10 Days, #30 TAB 0 Refills Prov: RAY HARGROVE MD 04/13/22 Hydrocodone/Acetaminophen (Hydrocodone-Acetamin 5-325 mg) 5 Mg-325 Mg Tablet 1 TAB PO Q4H PRN for PAIN-SEVERE (8-10) for 3 Days, #18 TAB 0 Refills Prov: RAY HARGROVE MD 04/13/22 RAY HARGROVE MD Apr 13, 2022 19:11
[2022-04-13] MEDS ORDERED: ORPHENADRINE 60 MG/2 ML (NORFLEX) AMP (ED ONLY) IM STA (19:19)
[2022-04-13] MEDS ORDERED: morphine INJ 10 MG/ML 1ML (SYR OR VIAL) IM STA (19:19)
[2022-04-13 19:22] LABS: BILIRUBIN,URINE NEGATIVE (NEGATIVE); CLARITY,URINE SL CLOUDY; COLOR,URINE YELLOW; GLUCOSE, URINE (UA) 1+ (NEGATIVE); KETONES,URINE NEGATIVE (NEGATIVE); LEUKOCYTE ESTERASE ,URINE NEGATIVE (NEGATIVE); NITRITE,URINE NEGATIVE (NEGATIVE); PROTEIN,URINE 1+ (NEGATIVE)
[2022-04-13 19:23] LABS: HCG,QUALITATIVE URINE NEGATIVE (NEGATIVE)
[2022-04-13 19:29] LABS: AMORPHOUS SEDIMENT,UR FEW AMOR PHOSPHATE /LPF; BACTERIA,URINE NEGATIVE /HPF; SQUAMOUS EPITHELIAL CELL,UR 0-2 /HPF; WBC,URINE 0-2 /HPF
[2022-04-13 19:34] LABS: AMPHETAMINE SCREEN, URINE POSITIVE (NEGATIVE); BARBITURATE SCREEN URINE NEGATIVE (NEGATIVE); BENZODIAZEPINES SCREEN URINE NEGATIVE (NEGATIVE); CANNABINOID SCREEN, URINE NEGATIVE (NEGATIVE); COCAINE SCREEN URINE NEGATIVE (NEGATIVE); OPIATE SCREEN URINE NEGATIVE (NEGATIVE); TRICYCLIC ANTIDEPRESSANTS SCRE POSITIVE (NEGATIVE)
[2022-04-13 19:35] LABS: METHADONE STAT NEGATIVE (NEGATIVE); OXYCODONE STAT NEGATIVE (NEGATIVE); PROPOXYPHENE STAT NEGATIVE (NEGATIVE)
--- NOTE | 2022-04-13 20:22 | Diagnostic Imaging Report ---
Procedure: CT lumbar spine without contrast. Technique: Multiple contiguous axial images were obtained through the lumbar spine without the use of intravenous contrast. Sagittal and coronal reformations were then performed. Auto Exposure Controls were utilized during the CT exam to meet ALARA standards for radiation dose reduction. Date: April 13, 2022. Indication: 31-year-old female, fall. Low back and coccygeal pain. Comparison: None. Findings: The alignment of the lumbar spine is unremarkable. There is an acute oblique fracture involving the anterior and superior aspect of the T11 vertebral body. There is a superior endplate concavity at this level. There is no fracture involvement of the posterior elements. There is no retropulsed fracture fragment. There are bilateral L5 pars interarticularis defects without anterolisthesis of L5 on S1. There is no additional identified acute fracture in the included [id number]. The lumbar disc heights are well preserved. CT is limited for assessment of disc pathology as well as additional non-bony causes of pathology in the spinal canal. Impression: 1. Acute fracture involving the anterior and superior aspect of the T11 vertebral body with superior endplate concavity. No fracture involvement of the posterior elements. Dictated by: Dictated on workstation # [id number]
--- NOTE | 2022-04-13 20:33 | Diagnostic Imaging Report ---
Procedure: CT pelvis without contrast. Technique: Multiple contiguous axial images were obtained through the pelvis without the use of intravenous contrast. Sagittal and coronal reformations were performed. Auto Exposure Controls were utilized during the CT exam to meet ALARA standards for radiation dose reduction. Date: April 13, 2022. Indication: 31-year-old female, fall. Sacrum and coccygeal pain. Comparison: None. Findings: There are bilateral L5 pars interarticularis defects. The pubic symphysis and sacroiliac joints are normally aligned. The hips are normally aligned. There is no joint space loss of either hip. There is no identified acute fracture in the included [id number]. There is no identified sizable fluid collection or hematoma. There is no free fluid in the pelvis. Impression: 1. No identified acute abnormality at the level of the pelvis. Dictated by: Dictated on workstation # [id number]
[2022-04-13] MEDS ORDERED: ACHD5005 PO ×2 (20:49→20:51)
[2022-04-13] MEDS ORDERED: IBUP-1780 PO ×2 (20:49→20:51)
[2022-04-13] MEDS ORDERED: CYCL10TA25 PO ×2 (20:49→20:51)
[2022-04-13 20:54] VITALS: BP 138/81
== END 2022-04-13 20:56 | disposition home or self-care (01) ==
LOC: EDUNIT# 18:35 → ER FS 18:36
DX: S22.080A Wedge compression fracture of T11-T12 vertebra, initial encounter for closed fracture (principal); M53.3 Sacrococcygeal disorders, not elsewhere classified; F17.210 Nicotine dependence, cigarettes, uncomplicated; Z88.6 Allergy status to analgesic agent; Z88.5 Allergy status to narcotic agent; W10.9XXA Fall (on) (from) unspecified stairs and steps, initial encounter; Y92.009 Unspecified place in unspecified non-institutional (private) residence as the place of occurrence of the external cause
CPT/HCPCS: 72131; 72192; 80306; 81000; 84703

== ENCOUNTER 2022-05-18 19:54 | Emergency (ER) | payer SELFPAY ==
[~2022-05-18] VITALS: Ht 167 cm; Wt 96.4 kg
[~2022-05-18 19:54] MED LIST changes: +ACHD5005 PO; +IBUP-1780 PO
--- NOTE | 2022-05-18 20:17 | ED Fall/Injury ---
General Stated Complaint: FELL,R ABD SIDE PAIN History of Present Illness Date Seen by Provider: May 18, 2022 Time Seen by Provider: 20:10 Initial Comments 31-year-old female with PMH of chronic T11 fracture, is here with complaints of having a fall on the stairs and landing on her right side causing her to have right-sided lower rib and right flank and right abdominal pain. The fall occurred today. Denies SOB, chest pain, nausea and vomiting, head strike, LOC. Allergies and Home Medications Allergies Coded Allergies: Penicillins (Unverified Allergy, Mild, 05/21/09) promethazine (Unverified Allergy, Mild, 05/21/09) acetaminophen (Verified Allergy, Unknown, 05/15/20) lisinopril (Verified Allergy, Unknown, 05/15/20) oxycodone (Verified Allergy, Unknown, 05/15/20) Patient Home Medication List Home Medication List Reviewed: Yes Amitriptyline HCl (Amitriptyline HCl) 25 Mg Tablet, (Reported) Entered as Reported by: CYNTHIA WEEKS on 03/19/192148 Cyclobenzaprine HCl (Cyclobenzaprine HCl) 10 Mg Tablet, 10 MG PO Q8H PRN for SPASMS Prescribed by: PRATIK SALAMANCA on 05/15/20 075 Cyclobenzaprine HCl (Cyclobenzaprine HCl) 10 Mg Tablet, 10 MG PO TID PRN for MUSCLE SPASMS Prescribed by: RAY HARGROVE on 04/13/222050 Hydrocodone/Acetaminophen (Hydrocodone-Acetamin 5-325 mg) 5 Mg-325 Mg Tablet, 1 TAB PO Q4H PRN for PAIN-SEVERE (8-10) Prescribed by: RAY HARGROVE on 04/13/222051 Ibuprofen (Ibuprofen) 800 Mg Tablet, 800 MG PO Q8H PRN for PAIN Prescribed by: RAY HARGROVE on 04/13/222050 Metoprolol Tartrate (Metoprolol Tartrate) 25 Mg Tablet, (Reported) Entered as Reported by: CYNTHIA WEEKS on 03/19/192148 Naproxen (Naprosyn) 500 Mg Tablet, 500 MG PO BID Prescribed by: PRATIK SALAMANCA on 05/15/20 075 Quetiapine Fumarate (Quetiapine Fumarate) 300 Mg Tablet, (Reported) Entered as Reported by: CYNTHIA WEEKS on 03/19/19 0007 Review of Systems Review of Systems Constitutional: no symptoms reported Eyes: No Symptoms Reported Ears, Nose, Mouth, Throat: no symptoms reported Respiratory: no symptoms reported Cardiovascular: no symptoms reported Gastrointestinal: no symptoms reported Genitourinary: no symptoms reported Musculoskeletal: joint pain, muscle pain Skin: no symptoms reported Psychiatric/Neurological: No Symptoms Reported Past Otubarr-Ytqmjd-Lnterc Hx Seasonal Allergies Seasonal Allergies: No Past Medical History Surgery/Hospitalization HX: Methamphetamine abuse, cholecystectomy, section, hypertension, migraines Surgeries: Yes (C/S x4, R ankle, L knee) Section, Gallbladder, Orthopedic Respiratory: No Cardiac: Yes Hypertension Neurological: Yes Headaches /Migraines Genitourinary: No Gastrointestinal: No Musculoskeletal: Yes Fractures Endocrine: No HEENT: No Cancer: No Psychosocial: Yes Bipolar, Depression Integumentary: No Blood Disorders: No Physical Exam Vital Signs Vital Signs - First Documented 05/18/22 20:10 Temp 35.5 Pulse 110 Resp 20 B/P (MAP) 141/98 (112) Pulse Ox 100 O2 Delivery Room Air Capillary Refill : Height, Weight, BMI Height: 5'5.00" Weight: 164lbs. oz. 74.335776sc; 34.00 BMI Method:Stated General Appearance: WD/WN, no apparent distress HEENT: PERRL/EOMI, normal ENT inspection Neck: non-tender, full range of motion, supple, normal inspection Cardiovascular: regular rate, rhythm Respiratory: lungs clear, normal breath sounds, other (tenderness along 12th rib ) Gastrointestinal: normal bowel sounds, soft, tenderness (on right CVA and right abdomen, no ecchymosis) Back: normal inspection, CVA tenderness (R), muscle spasm Extremities: normal range of motion, non-tender, normal inspection Neurologic/Psychiatric: no motor/sensory deficits, alert, normal mood/affect, oriented x 3 Skin: normal color Lymphatic: no adenopathy Progress/Results/Core Measures Results/Orders Lab Results Laboratory Tests Test 05/18/22 20:50 Range/Units Urine Color YELLOW Urine Clarity CLOUDY Urine pH 7.5 5-9 Urine Specific [place] 1.015 L 1.016-1.022 Urine Protein NEGATIVE NEGATIVE Urine Glucose (UA) NEGATIVE NEGATIVE Urine Ketones NEGATIVE NEGATIVE Urine Nitrite NEGATIVE NEGATIVE Urine Bilirubin NEGATIVE NEGATIVE Urine Urobilinogen 0.2 < = 1.0 MG/DL Urine Leukocyte Esterase NEGATIVE NEGATIVE Urine RBC (Auto) NEGATIVE NEGATIVE Urine RBC NONE /HPF Urine WBC RARE /HPF Urine Squamous Epithelial Cells 10-25 H /HPF Urine Crystals PRESENT H /LPF Urine Amorphous Sediment MOD AVA PHOSPHATE H /LPF Urine Bacteria TRACE /HPF Urine Casts NONE /LPF Urine Mucus NEGATIVE /LPF Urine Culture Indicated NO Urine Test NEGATIVE NEGATIVE Urine Opiates Screen NEGATIVE NEGATIVE Urine Oxycodone Screen NEGATIVE NEGATIVE Urine Methadone Screen NEGATIVE NEGATIVE Urine Propoxyphene Screen NEGATIVE NEGATIVE Urine Barbiturates Screen NEGATIVE NEGATIVE Ur Tricyclic Antidepressants Screen NEGATIVE NEGATIVE Urine Phencyclidine Screen NEGATIVE NEGATIVE Urine Amphetamines Screen NEGATIVE NEGATIVE Urine Methamphetamines Screen NEGATIVE NEGATIVE Urine Benzodiazepines Screen NEGATIVE NEGATIVE Urine Cocaine Screen NEGATIVE NEGATIVE Urine Cannabinoids Screen NEGATIVE NEGATIVE My Orders Orders - MADY COOLEY MD Drug Screen Stat (Urine) (05/18/22 20:18) Hcg,Qualitative Urine (05/18/22 20:18) Ua Culture If Indicated (05/18/22 20:18) Ribs/Unilateral With Chest (05/18/22 20:17) Iohexol Injection (Omnipaque 350 Mg/Ml 1 (05/18/22 20:45) Received Contrast (Hold Metformin- Contr (05/18/22 20:45) Sodium Chloride Flush (Catheter Flush Sy (05/18/22 20:45) Ns (Ivpb) (Sodium Chloride 0.9% Ivpb Bag (05/18/22 20:45) Ct Abdomen/Pelvis W (05/18/22 20:17) Medications Given in ED Current Medications Medications Dose Ordered Sig/Fly Route Start Time Stop Time Status Last Admin Dose Admin Iohexol 100 ml ONCE ONCE IV 05/18/22 20:45 05/18/22 20:46 DC 05/18/22 21:05 100 ML Sodium Chloride 10 ml NEEDED PRN IV 05/18/22 20:45 05/18/22 21:05 10 ML Sodium Chloride 100 ml ONCE ONCE IV 05/18/22 20:45 05/18/22 20:46 DC 05/18/22 21:05 100 ML Vital Signs/I&O 05/18/22 20:10 Temp 35.5 Pulse 110 Resp 20 B/P (MAP) 141/98 (112) Pulse Ox 100 O2 Delivery Room Air Progress Progress Note : Progress Note 1. FALL/ MUSCLE STRAIN: - XR RIBS/ CHEST: normal - CT ABD: Unremarkable and stable chronic T11 fracture - Advised lidoderm patch/ Ibuprofen as needed for pain - Follow up with PCP within 7 days -The patient was seen in the ED, and treated appropriately to presentation at a specific point in time. Patient is informed that there is a possibility that disease and illness can evolve and change in acuity rapidly or slowly after patient is discharged from the ER. Precautionary advice given to the patient for immediate return to ER if symptoms worsen or do not resolve, and to seek emergency care sooner rather than later. Pt also advised on the importance of PCP follow up and compliance with management and follow up plan with PCP and/or specialist, as this is part of the management plan. Pt verbally expressed understanding. Diagnostic Imaging Diagonstic Imaging: Xray, CT Plain Films/CT/US/NM/MRI: chest, abdomen Comments [facility] [place], [place] NAME: JOSELYN VERDUGO [employer] REC#: [id number] PT STATUS: REG ER : 1990 PHYSICIAN: MADY COOLEY MD ADMIT DATE: 05/18/22/ER FS Draft Date of Exam:05/18/22 RIBS/UNILATERAL WITH CHEST EXAM: RIBS/UNILATERAL WITH CHEST INDICATION: Right-sided chest wall pain. Trauma. Fall. COMPARISON: Chest radiograph 03/19/2019. FINDINGS: Normal heart size and central pulmonary vascularity. Lungs are clear. No pleural effusion or pneumothorax. No acute osseous findings. Cholecystectomy clips. IMPRESSION: 1. No acute cardiopulmonary findings. 2. No right rib fracture is identified. Dictated on workstation # [id number] Dict: 05/18/222113 Trans: 05/18/222120 [facility] [id number] Interpreted by: PATEL BARNARD MD Electronically signed by: [facility] [place], [place] NAME: JOSELYN VERDUGO [employer] REC#: [id number] PT STATUS: REG ER : 1990 PHYSICIAN: MADY COOLEY MD ADMIT DATE: 05/18/22/ER FS Draft Date of Exam:05/18/22 CT ABDOMEN/PELVIS W PROCEDURE: CT abdomen and pelvis with contrast. TECHNIQUE: Multiple contiguous axial images were obtained through the abdomen and pelvis after administration of intravenous contrast. Auto Exposure Controls were utilized during the CT exam to meet ALARA standards for radiation dose reduction. All CT scans use one or more of the following dose optimizing techniques: automated exposure control, MA and/or KvP adjustment based on patient size and exam type or iterative reconstruction. INDICATION: Right upper quadrant and flank pain. Trauma. Fall. COMPARISON: CT lumbar spine without contrast 04/13/2022. FINDINGS: Cholecystectomy. The liver, pancreas, spleen, adrenals, kidneys, collecting systems and bladder are negative. Reproductive structures are grossly unremarkable. Normal appendix. No free intraperitoneal air or fluid. No lymphadenopathy. No evidence of bowel obstruction. Chronic superior endplate compression fracture of T11 resulting in approximately 20% height loss is stable. Osseous structures are otherwise intact. IMPRESSION: 1. No acute CT findings in the abdomen or pelvis. 2. Stable superior endplate compression fracture of T11. Dictated on workstation # [id number] Dict: 05/18/222128 Trans: 05/18/222141 COUNT INCLUDES THE [facility] [id number] Interpreted by: PATEL BARNARD MD Electronically signed by: Departure Impression Primary Impression: Fall on stairs Qualified Codes: W10.9XXA - Fall (on) (from) unspecified stairs and steps, initial encounter Additional Impression: Muscle strain Disposition: 01 HOME, SELF-CARE Condition: Stable Departure-Patient Inst. Referrals: SHANE FUNES APRN (PCP/Family) Primary Care Physician Patient Instructions: Muscle Strain, Muscle Strain (DC) Add. Discharge Instructions: - Advised lidoderm patch/ Ibuprofen as needed for pain - Follow up with PCP within 7 days AMDY COOLEY MD May 18, 2022 20:16
[2022-05-18] MEDS ORDERED: NS 100 ML (IVPB) BAG IV ONE (20:45)
[2022-05-18] MEDS ORDERED: HOLD METFORMIN - RECEIVED CONTRAST 20 ML VIAL IV SCH (20:45)
[2022-05-18] MEDS ORDERED: IOHEXOL 350 MG/ML 100 ML (OMNIPAQUE 350) VIAL IV ONE (20:45)
[2022-05-18] MEDS ORDERED: CATHETER FLUSH 10 ML SYR IV PRN (20:45)
[2022-05-18 21:15] LABS: BILIRUBIN,URINE NEGATIVE (NEGATIVE); CLARITY,URINE CLOUDY; COLOR,URINE YELLOW; GLUCOSE, URINE (UA) NEGATIVE (NEGATIVE); KETONES,URINE NEGATIVE (NEGATIVE); LEUKOCYTE ESTERASE ,URINE NEGATIVE (NEGATIVE); NITRITE,URINE NEGATIVE (NEGATIVE); PH,URINE 7.5 (5-9); PROTEIN,URINE NEGATIVE (NEGATIVE)
[2022-05-18 21:21] LABS: AMORPHOUS SEDIMENT,UR MOD AMOR PHOSPHATE /LPF; BACTERIA,URINE TRACE /HPF; WBC,URINE RARE /HPF
--- NOTE | 2022-05-18 21:21 | Diagnostic Imaging Report ---
EXAM: RIBS/UNILATERAL WITH CHEST INDICATION: Right-sided chest wall pain. Trauma. Fall. COMPARISON: Chest radiograph 03/19/2019. FINDINGS: Normal heart size and central pulmonary vascularity. Lungs are clear. No pleural effusion or pneumothorax. No acute osseous findings. Cholecystectomy clips. IMPRESSION: 1. No acute cardiopulmonary findings. 2. No right rib fracture is identified. Dictated by: Dictated on workstation # [id number]
[2022-05-18 21:22] LABS: HCG,QUALITATIVE URINE NEGATIVE (NEGATIVE)
[2022-05-18 21:24] LABS: AMPHETAMINE SCREEN, URINE NEGATIVE (NEGATIVE); BARBITURATE SCREEN URINE NEGATIVE (NEGATIVE); BENZODIAZEPINES SCREEN URINE NEGATIVE (NEGATIVE); CANNABINOID SCREEN, URINE NEGATIVE (NEGATIVE); COCAINE SCREEN URINE NEGATIVE (NEGATIVE); METHADONE STAT NEGATIVE (NEGATIVE); OPIATE SCREEN URINE NEGATIVE (NEGATIVE); OXYCODONE STAT NEGATIVE (NEGATIVE); PROPOXYPHENE STAT NEGATIVE (NEGATIVE); TRICYCLIC ANTIDEPRESSANTS SCRE NEGATIVE (NEGATIVE)
--- NOTE | 2022-05-18 21:43 | Diagnostic Imaging Report ---
PROCEDURE: CT abdomen and pelvis with contrast. TECHNIQUE: Multiple contiguous axial images were obtained through the abdomen and pelvis after administration of intravenous contrast. Auto Exposure Controls were utilized during the CT exam to meet ALARA standards for radiation dose reduction. All CT scans use one or more of the following dose optimizing techniques: automated exposure control, MA and/or KvP adjustment based on patient size and exam type or iterative reconstruction. INDICATION: Right upper quadrant and flank pain. Trauma. Fall. COMPARISON: CT lumbar spine without contrast 04/13/2022. FINDINGS: Cholecystectomy. The liver, pancreas, spleen, adrenals, kidneys, collecting systems and bladder are negative. Reproductive structures are grossly unremarkable. Normal appendix. No free intraperitoneal air or fluid. No lymphadenopathy. No evidence of bowel obstruction. Chronic superior endplate compression fracture of T11 resulting in approximately 20% height loss is stable. Osseous structures are otherwise intact. IMPRESSION: 1. No acute CT findings in the abdomen or pelvis. 2. Stable superior endplate compression fracture of T11. Dictated by: Dictated on workstation # [id number]
[2022-05-18 22:15] VITALS: BP 135/92
== END 2022-05-18 22:15 | disposition home or self-care (01) ==
LOC: EDUNIT# 19:54 → ER FS 19:55
DX: S39.011A Strain of muscle, fascia and tendon of abdomen, initial encounter (principal); S29.011A Strain of muscle and tendon of front wall of thorax, initial encounter; Z90.49 Acquired absence of other specified parts of digestive tract; Z32.02 Encounter for pregnancy test, result negative; Z28.310 Unvaccinated for COVID-19; W10.9XXA Fall (on) (from) unspecified stairs and steps, initial encounter
CPT/HCPCS: 71101; 74177; 80306; 81000; 84703